=== PATIENT | male | born 1975 | race African-American/Black ===

== ENCOUNTER 2021-06-09 05:36 | Emergency (ER) | payer SELFPAY ==
[2021-06-09 04:59] LABS: ANION GAP 12.5 mEq/L (7-13); CHLORIDE,CL 105 mmol/L (98-107); SODIUM,NA 143 mmol/L (136-145)
[~2021-06-09 05:36] MED LIST: Morphine 2 MG/ML SYRINGE IVPUSH ONE; Nitroglycerin/D5W 25 MG/250 ML BOTTLE IV SCH; Nitroglycerin/D5W 25 MG/250 ML BOTTLE ONE; diphenhydrAMINE 50 MG/ML SDV IVPUSH ONE
[2021-06-09] MEDS ORDERED: Magnesium Sulfate/Water 2 GM in Premix Bag 1 BAG IV ONE (05:39)
[2021-06-09] MEDS ORDERED: Heparin Sodium/0.45% NaCl 25,000 UNITS/500 ML BAG IV SCH (07:45)
[2021-06-09] MEDS ORDERED: Acetaminophen 325 MG Tab PO ONE (09:23)
[2021-06-09] MEDS ORDERED: Metoprolol Tartrate 25 MG Tab PO ONE (10:27)
== END 2021-06-09 13:44 ==
LOC: DL.ED 05:36
DX: J32.8 Other chronic sinusitis (principal); I11.0 Hypertensive heart disease with heart failure; I50.9 Heart failure, unspecified; R79.89 Other specified abnormal findings of blood chemistry; I25.2 Old myocardial infarction
CPT/HCPCS: 36415; 70450; 71045; 80053; 81003; 83735; 83880; 84484; 85025; 85379; 85610; 93005; 96365; 96366; 96368; 99285; A9270; J1644; J2270; J3475; J3490; 93010; 96375

== ENCOUNTER 2021-09-14 23:30 | Emergency (ER) | payer SELFPAY ==
[2021-09-14] MEDS ORDERED: Sodium Chloride 0.9% 1,000 ML IV ONE (23:38)
[2021-09-14] MEDS ORDERED: Ondansetron 4 MG/2 ML SDV IVPUSH ONE (23:38)
[2021-09-14] MEDS ORDERED: Ketorolac 30 MG/ML SDV IVPUSH ONE (23:38)
[2021-09-15 00:15] LABS: ANION GAP 15.6 mEq/L (7-13); CHLORIDE,CL 104 mmol/L (98-107); SODIUM,NA 140 mmol/L (136-145)
[2021-09-15] MEDS ORDERED: Butorphanol 2 MG/ML SDV IM ONE (00:49)
[2021-09-15] MEDS ORDERED: Promethazine 25 MG/ML SDV IM ONE (00:49)
[2021-09-15] MEDS ORDERED: hydrALAZINE 20 MG/ML SDV IVPUSH ONE (01:42)
== END 2021-09-15 02:21 | disposition home or self-care (01) ==
LOC: DL.ED 23:30
DX: G43.009 Migraine without aura, not intractable, without status migrainosus (principal); I50.9 Heart failure, unspecified; I25.2 Old myocardial infarction; Z72.0 Tobacco use
CPT/HCPCS: 36415; 80053; 81003; 85025; 96372; 96374; 96375; 99284; J0360; J0595; J1885; J2405; J2550; J7030

== ENCOUNTER 2021-09-25 19:15 | Emergency (ER) | payer SELFPAY ==
[2021-09-25] MEDS ORDERED: Metoclopramide 10 MG/2 ML SDV IVPUSH ONE (19:37)
[2021-09-25] MEDS ORDERED: Sodium Chloride 0.9% 10 ML Syringe FLUSH PRN (19:37)
[2021-09-25] MEDS ORDERED: diphenhydrAMINE 50 MG/ML SDV IVPUSH ONE (19:39)
[2021-09-25 19:56] LABS: ANION GAP 16.3 mEq/L (7-13)
[2021-09-25] MEDS ORDERED: Carvedilol 25 MG Tab PO ONE (20:09)
[2021-09-25] MEDS ORDERED: Potassium Chloride 10 MEQ Tab.ER PO ONE (20:40)
== END 2021-09-25 21:00 | disposition home or self-care (01) ==
LOC: DL.ED 19:15
DX: G43.009 Migraine without aura, not intractable, without status migrainosus (principal); E87.6 Hypokalemia; I25.2 Old myocardial infarction; I50.9 Heart failure, unspecified; Z72.0 Tobacco use; Z79.02 Long term (current) use of antithrombotics/antiplatelets; Z79.899 Other long term (current) drug therapy
CPT/HCPCS: 36415; 80053; 85025; 96374; 96375; 99283; A9270; J1200; J2765; J3490

== ENCOUNTER 2021-09-26 19:42 | Emergency (ER) | payer SELFPAY | END 2021-09-27 00:33 | disposition left against medical advice (07) | LOC: DL.ED 19:42 | DX: Z53.21 Procedure and treatment not carried out due to patient leaving prior to being seen by health care provider (principal) ==

== ENCOUNTER 2022-11-23 06:25 | Day surgery (SDC) | payer MEDICAID ==
[~2022-11-23 06:25] MED LIST changes: +Dextrose 5%-0.45% NaCl 1,000 ML IV SCH; -Morphine 2 MG/ML SYRINGE IVPUSH ONE; -Nitroglycerin/D5W 25 MG/250 ML BOTTLE IV SCH; -Nitroglycerin/D5W 25 MG/250 ML BOTTLE ONE; +Sodium Chloride 0.9% 10 ML Syringe FLUSH PRN; +Sodium Chloride 0.9% 10 ML Syringe FLUSH SCH; -diphenhydrAMINE 50 MG/ML SDV IVPUSH ONE
[2022-11-23] MEDS ORDERED: Midazolam 1 MG/ML 2 ML SDV ONE (06:59)
[2022-11-23] MEDS ORDERED: Midazolam 1 MG/ML 2 ML SDV IVPUSH ONE (07:00)
[2022-11-23] MEDS ORDERED: fentaNYL 100 MCG/2 ML SDV IVPUSH ONE (07:00)
[2022-11-23] MEDS ORDERED: fentaNYL 100 MCG/2 ML SDV ONE (07:00)
[2022-11-23] MEDS ORDERED: fentaNYL 100 MCG/2 ML SDV IV ONE ×2 (07:09)
[2022-11-23] MEDS ORDERED: Midazolam 1 MG/ML 2 ML SDV IV ONE ×6 (07:10→07:28)
== END 2022-11-23 09:45 | disposition home or self-care (01) ==
LOC: DL.ENDO 06:25
PROVIDERS: ATTEND Internal Medicine Gastroenterology
DX: Z12.11 Encounter for screening for malignant neoplasm of colon (principal); D12.4 Benign neoplasm of descending colon; I11.0 Hypertensive heart disease with heart failure; I50.20 Unspecified systolic (congestive) heart failure; I43 Cardiomyopathy in diseases classified elsewhere; I25.10 Atherosclerotic heart disease of native coronary artery without angina pectoris; F17.210 Nicotine dependence, cigarettes, uncomplicated; Z95.5 Presence of coronary angioplasty implant and graft; Z79.899 Other long term (current) drug therapy; Z79.02 Long term (current) use of antithrombotics/antiplatelets; Z79.82 Long term (current) use of aspirin; Z95.810 Presence of automatic (implantable) cardiac defibrillator
CPT/HCPCS: 45385; J2250; J3010; J7042